=== PATIENT | female | born 1960 | race Caucasian/White ===

== ENCOUNTER 2022-07-28 00:36 | Observation (INO) | payer MEDICARE ==
[~2022-07-28] VITALS: Ht 160 cm; Wt 80.7 kg
[2022-07-28] VITALS (9 sets, daily range): BP systolic 108–125; BP diastolic 61–86
[~2022-07-28 00:36] MED LIST: ADAPALENE45 G2; FOLIC ACID0.4 MG PO; HYDROCODON-ACE1 EAC9; HYDROXYZINE HCL25 MG PO; NUVIGIL150 MG PO; NUVIGIL200 MG PO; SUMATRIPTAN SUC25 MG PO; UBRELVY100 MG PO; ULTRAM50 MG PO; WAKIX17.8 MG PO; [UNRECOGNIZED DRUG - OTHER] INJ
[2022-07-28] MEDS ORDERED: GLUCAGON FOR INJ 1 MG VIAL IV STA (00:47)
[2022-07-28 00:55] LABS: BASOPHILS % 0.5 % (0.0-1.0); EOSINOPHILS # (AUTO) 0.1 (0.0-0.4); EOSINOPHILS % 1.1 % (0.0-6.0); HEMATOCRIT 42.5 % (34.2-44.1); HEMOGLOBIN 13.9 g/dL (12.0-16.0); LYMPHOCYTES # (AUTO) 1.4 (1.0-3.2); LYMPHOCYTES % 15.3 % (18.0-39.1); MEAN CORPUSCULAR HGB CONC 32.7 g/dL (31-35); MEAN CORPUSCULAR VOLUME 85.7 fL (81-99); MONOCYTES # (AUTO) 0.5 (0.2-0.8); MONOCYTES % 5.2 % (4.4-11.3); NEUTROPHILS # (AUTO) 6.8 (2.1-6.9); NEUTROPHILS % 77.7 % (38.7-80.0); PLATELET COUNT 219 x10e3/uL (140-360); RED BLOOD COUNT 4.96 x10e6/uL (3.6-5.1); RED CELL DISTRIBUTION WIDTH 13.3 % (11.7-14.4)
[2022-07-28] MEDS ORDERED: CALCIUM GLUC 1 G/50 ML NACL 50 ML IV ONE ×2 (01:11→01:15)
[2022-07-28 01:24] LABS: CREATINE KINASE 158 IU/L (29-168)
[2022-07-28 01:25] LABS: CLARITY,URINE SL CLOUDY (CLEAR); COLOR,URINE YELLOW (YELLOW); KETONES,URINE TRACE (NEGATIVE); LEUKOCYTE ESTERASE ,URINE TRACE (NEGATIVE); NITRITE,URINE NEGATIVE (NEGATIVE); PROTEIN,URINE DIPSTICK NEGATIVE (NEGATIVE); URINE UROBILINOGEN 0.2 mg/dL (0.2 - 1)
[2022-07-28 01:28] LABS: ALBUMIN 3.9 g/dL (3.5-5.0); ALBUMIN/GLOBULIN RATIO 1.3 (0.8-2.0); ANION GAP 18.3 mmol/L (8-16); CREATININE, SERUM 0.75 mg/dL (0.57-1.11); POTASSIUM 4.3 mmol/L (3.5-5.1)
[2022-07-28 01:36] LABS: BACTERIA,URINE MANY /HPF; CALCIUM OXALATE CRYSTALS,UR MODERATE (FEW); EPITHELIAL CELLS,URINE FEW /LPF; MUCUS,URINE MODERATE (RARE); RBC,URINE >50 /HPF (0-5)
[2022-07-28] MEDS ORDERED: ONDANSETRON HCL INJ 2MG/ML 2ML 2 MG/ML VIAL IV PRN (04:00)
[2022-07-28] MEDS ORDERED: Morphine 4mg INJECTION 4 MG/ML INJ IV PRN (04:00)
[2022-07-28] MEDS: SODIUM CHLORIDE 0.9% 1000ML 1,000 ML IV SCH ×3 (04:35→20:49)
[2022-07-28] MEDS ORDERED: IOPAMIDOL 370 MG/ML 100 ML INFUS..BTL INJ ONE (04:42)
[2022-07-28] MEDS ORDERED: DUPIXENT P200 MG/1.1 (04:55)
[2022-07-28] MEDS ORDERED: CITRATE OF MAGNESIA 300ML BOTTLE PO ONE (09:30)
[2022-07-28] MEDS: HYDROXYZINE HCL 25 MG TAB PO SCH ×3 (12:21→20:49)
[2022-07-28] MEDS: SENNA-S TABLET PO SCH ×2 (12:21→17:24)
[2022-07-28] MEDS: POLYETHYLENE GLYCOL 3350 17 GM PACK PO SCH ×2 (12:21→17:24)
[2022-07-28] MEDS: METOCLOPRAMIDE HCL 10 MG/2ML VIAL IV SCH ×3 (12:21→20:49)
[2022-07-28] MEDS ORDERED: PEG (High)/E-LYTE SOLN 4,000 ML BTL PO ONE (14:00)
[2022-07-29 00:18] VITALS: BP 121/40
[2022-07-29 03:50] VITALS: BP 142/71
[2022-07-29] MEDS: SODIUM CHLORIDE 0.9% 1000ML 1,000 ML IV SCH (06:34)
[2022-07-29] MEDS: METOCLOPRAMIDE HCL 10 MG/2ML VIAL IV SCH (07:30)
[2022-07-29 07:38] VITALS: BP 126/55
[2022-07-29] MEDS ORDERED: ACETAMIN/BUTALBITAL/CAFFEINE TAB PO PRN (08:15)
[2022-07-29] MEDS: HYDROXYZINE HCL 25 MG TAB PO SCH (09:00)
[2022-07-29] MEDS: POLYETHYLENE GLYCOL 3350 17 GM PACK PO SCH (09:00)
[2022-07-29] MEDS: SENNA-S TABLET PO SCH (09:00)
[2022-07-29] MEDS ORDERED: ONDANSETRON HCL 4 MG ORAL DISINTEGRATING TAB PO PRN (09:15)
[2022-07-29 11:17] VITALS: BP 126/55
[2022-07-29] MEDS ORDERED: [UNRECOGNIZED DRUG - OTHER] PO (11:26)
[2022-07-29] MEDS ORDERED: AMITIZA24 MCG PO (11:26)
[2022-07-29 11:30] VITALS: BP 121/77
== END 2022-07-29 12:46 | disposition home or self-care (01) ==
LOC: ER 00:44 → INTOOBSV 03:52 → ERHOLD 03:52 → MERGE 03:52 → MED/SURG 04:18
PROVIDERS: ADMIT Internal Medicine; ATTEND Internal Medicine
DX: K56.600 Partial intestinal obstruction, unspecified as to cause (principal); N39.0 Urinary tract infection, site not specified; R19.7 Diarrhea, unspecified; Z98.84 Bariatric surgery status; F41.9 Anxiety disorder, unspecified; F32.A Depression, unspecified; G47.419 Narcolepsy without cataplexy; R00.1 Bradycardia, unspecified; R56.9 Unspecified convulsions; Z20.822 Contact with and (suspected) exposure to COVID-19; Z98.1 Arthrodesis status
CPT/HCPCS: 36415 ×2; 70450; 74018; 74177; 80053; 81001; 82550; 82553; 83690; 84484; 85025; 93005; 96361; 99284; G0378 ×2; J0610; J0696 ×2; J1610; J2270; J2765 ×2; J3410 ×2; J7030 ×2; Q9967; U0002